=== PATIENT | female | born 1960 | race African-American/Black ===

== ENCOUNTER 2018-11-13 06:00 | Emergency (ER) | payer OTHER ==
[~2018-11-13] VITALS: Ht 172.7 cm; Wt 79.8 kg
[2018-11-13 06:33] LABS: Eosinophils # (auto) 0.1 uL; Mean Corpuscular Volume 73.2 fL (80.0-100.0); Monocytes # (auto) 0.4 uL; Monocytes % (auto) 6.4 % (0.0-12.0); Platelet Count (auto) 226 10^3/uL (140-450); White Blood Cell 6.2 10^3/uL (4.4-10.8)
[2018-11-13 06:36] LABS: Basophils # (auto) 0 uL; Basophils % (auto) 0.7 % (0.0-2.0); Eosinophils % (auto) 1.3 % (0.0-7.0); Hematocrit 35.1 % (36.0-46.0); Hemoglobin 11.3 g/dL (12.2-16.2); Lymphocytes # (auto) 3.2 uL; Lymphocytes % (auto) 51.4 % (10.0-50.0); Mean Corpuscular Hemoglobin 23.5 pg (28.0-32.0); Mean Corpuscular Hgb Conc. 32.2 g/dL (32.0-36.0); Neutrophils # (auto) 2.5 uL; Neutrophils % (auto) 40.2 % (37.0-80.0); Nucleated Red Blood Cells % 0.1 %; Red Cell Distribution Width 17.3 % (11.8-14.3)
[2018-11-13 06:51] LABS: Albumin 3.8 g/dL (3.4-5.0); Calcium 9.4 mg/dL (8.5-10.1); Potassium 3.7 mmol/L (3.5-5.1)
[2018-11-13 06:54] LABS: BUN/Creatinine Ratio 15.1; Bilirubin, Total 0.3 mg/dL (0.2-1.0); Total Protein 7.6 g/dL (6.4-8.2)
[2018-11-13] MEDS ORDERED: LORazepam 2MG/ML-1ML VIAL IV ONE (08:00)
[2018-11-13] MEDS ORDERED: NITROGLYCERIN 0.4 MG SL TAB SL ONE (08:00)
[2018-11-13 09:41] LABS: Urine Bacteria FEW /hpf (None Seen); Urine Blood Negative /uL (Negative); Urine Mucus FEW (None Seen); Urine Specific Gravity 1.011 (1.001-1.035); Urine WBC 12 /hpf (0 - 5)
[2018-11-13 10:14] VITALS: BP 111/79
[2018-11-13] MEDS ORDERED: cefTRIAXone 1GM/50ML D5W 50 ML IV ONE (11:30)
== END 2018-11-13 12:13 | disposition home or self-care (01) ==
LOC: EDBD 06:00 → ER 06:04
DX: R55 Syncope and collapse (principal); K80.20 Calculus of gallbladder without cholecystitis without obstruction; Z88.0 Allergy status to penicillin
CPT/HCPCS: 36415; 70450; 74176; 80053; 81001; 82150; 83690; 85025; 93005; 94761; 96365; 96375; 99284; J0696; J2060

== ENCOUNTER 2021-05-29 17:03 | Emergency (ER) | payer OTHER ==
[~2021-05-29] VITALS: Ht 172.7 cm; Wt 77.1 kg
[2021-05-29] MEDS ORDERED: SODIUM CHLORIDE 0.9% 1,000 ML IV ONE (19:00)
[2021-05-29] MEDS ORDERED: cefTRIAXone 1GM/50ML D5W 50 ML IV ONE (19:15)
[2021-05-29 19:48] LABS: Basophils # (auto) 0.1 10 ^3/uL (0-0.2); Eosinophils # (auto) 0.1 10 ^3/uL (0-0.8); Lymphocytes # (auto) 2.5 10 ^3/uL (0.4-5.4); Monocytes # (auto) 0.7 10 ^3/uL (0-1.3)
[2021-05-29 19:50] LABS: Basophils % (auto) 0.5 % (0.0-2.0); Eosinophils % (auto) 0.3 % (0.0-7.0); Hemoglobin 10.7 g/dL (12.2-16.2); Lymphocytes % (auto) 14.7 % (10.0-50.0); Mean Corpuscular Hemoglobin 24.6 pg (28.0-32.0); Mean Corpuscular Hgb Conc. 32.6 g/dL (32.0-36.0); Mean Corpuscular Volume 75.4 fL (80.0-100.0); Neutrophils # (auto) 13.5 10 ^3/uL (1.6-8.6); Neutrophils % (auto) 80.5 % (37.0-80.0); Red Blood Cells 4.37 10^6/uL (4.0-5.20); Red Cell Distribution Width 18.1 % (11.8-14.3); White Blood Cell 16.8 10^3/uL (4.4-10.8)
[2021-05-29 20:05] LABS: Albumin 3.3 g/dL (3.4-5.0); BUN/Creatinine Ratio 15.7; Calcium 9.8 mg/dL (8.5-10.1); Potassium 3.8 mmol/L (3.5-5.1)
[2021-05-29 20:08] LABS: Bilirubin, Total 0.3 mg/dL (0.2-1.0); Total Protein 9.2 g/dL (6.4-8.2)
[2021-05-30] MEDS ORDERED: KETOROLAC TROMETH 30 MG/ML 1ML VIAL IV ONE (00:30)
[2021-05-30 02:41] VITALS: BP 102/67
[2021-05-30] MEDS ORDERED: CLIN-203 PO (02:42)
== END 2021-05-30 03:07 | disposition home or self-care (01) ==
LOC: EDBD 17:03 → ER 17:03
DX: L03.116 Cellulitis of left lower limb (principal); J45.909 Unspecified asthma, uncomplicated; Z88.0 Allergy status to penicillin
CPT/HCPCS: 36415; 73562; 80053; 85025; 85652; 86141; 87040; 93971; 96365; 96375; 99285; J0696; J1885; J7030

== ENCOUNTER 2021-08-08 13:46 | Inpatient (IN) | payer MEDICAID, OTHER ==
[~2021-08-08] VITALS: Ht 170.2 cm; Wt 82.0 kg
[~2021-08-08 13:46] MED LIST: CLIN-203 PO
[2021-08-08] MEDS ORDERED: cefTRIAXone 1GM/50ML D5W 50 ML IV ONE (15:15)
[2021-08-08] MEDS ORDERED: CLINDAMYCIN 300MG IV 50 ML IV ONE (15:15)
[2021-08-08 15:49] LABS: Eosinophils # (auto) 0.2 10 ^3/uL (0-0.8); Hemoglobin 10.7 g/dL (12.2-16.2); Monocytes # (auto) 0.3 10 ^3/uL (0-1.3); Nucleated Red Blood Cells % 0.1 %
[2021-08-08 15:50] LABS: Basophils # (auto) 0 10 ^3/uL (0-0.2); Basophils % (auto) 0.9 % (0.0-2.0); Hematocrit 34.9 % (36.0-46.0); Lymphocytes % (auto) 37.5 % (10.0-50.0); Mean Corpuscular Hemoglobin 23.3 pg (28.0-32.0); Mean Corpuscular Hgb Conc. 30.5 g/dL (32.0-36.0); Mean Corpuscular Volume 76.3 fL (80.0-100.0); Monocytes % (auto) 5.8 % (0.0-12.0); Neutrophils # (auto) 2.8 10 ^3/uL (1.6-8.6); Neutrophils % (auto) 52.8 % (37.0-80.0); Red Blood Cells 4.57 10^6/uL (4.0-5.20); Red Cell Distribution Width 17.7 % (11.8-14.3); White Blood Cell 5.4 10^3/uL (4.4-10.8)
[2021-08-08 16:05] LABS: Albumin 3.5 g/dL (3.4-5.0); BUN/Creatinine Ratio 14.7; Calcium 9.4 mg/dL (8.5-10.1); Potassium 3.6 mmol/L (3.5-5.1)
[2021-08-08 16:08] LABS: Bilirubin, Total 0.2 mg/dL (0.2-1.0); Total Protein 8.1 g/dL (6.4-8.2)
[2021-08-08] MEDS ORDERED: TEMAZEPAM 15 MG CAP PO PRN (22:30)
[2021-08-08] MEDS ORDERED: ONDANSETRON HCL 4 MG/2 ML VIAL IV PRN (22:30)
[2021-08-08] MEDS ORDERED: ACETAMINOPHEN 325 MG TAB PO PRN (22:30)
[2021-08-09] MEDS: HYDROcodone-ACET 5/325MG TAB PO PRN ×5 (00:21→22:40)
[2021-08-09 03:14] VITALS: BP 127/88
[2021-08-09 05:00] VITALS: BP 127/88
[2021-08-09 07:31] LABS: Basophils # (auto) 0.1 10 ^3/uL (0-0.2); Eosinophils # (auto) 0.2 10 ^3/uL (0-0.8); Hemoglobin 9.6 g/dL (12.2-16.2); Monocytes # (auto) 0.4 10 ^3/uL (0-1.3); White Blood Cell 6.6 10^3/uL (4.4-10.8)
[2021-08-09 07:33] LABS: Basophils % (auto) 1.1 % (0.0-2.0); Eosinophils % (auto) 3.1 % (0.0-7.0); Lymphocytes # (auto) 2.6 10 ^3/uL (0.4-5.4); Lymphocytes % (auto) 39.4 % (10.0-50.0); Mean Corpuscular Hemoglobin 23.6 pg (28.0-32.0); Mean Corpuscular Hgb Conc. 30.9 g/dL (32.0-36.0); Mean Corpuscular Volume 76.4 fL (80.0-100.0); Monocytes % (auto) 6.4 % (0.0-12.0); Neutrophils # (auto) 3.3 10 ^3/uL (1.6-8.6); Nucleated Red Blood Cells % 0.2 %; Red Blood Cells 4.06 10^6/uL (4.0-5.20); Red Cell Distribution Width 17.8 % (11.8-14.3)
[2021-08-09 08:03] LABS: BUN/Creatinine Ratio 16.7
[2021-08-09 09:00] VITALS: BP 111/75
[2021-08-09] MEDS: cefTRIAXone 1GM/50ML D5W 50 ML IV SCH (09:11)
[2021-08-09] MEDS: PANTOPRAZOLE 40 MG TAB PO SCH (09:11)
[2021-08-09] MEDS: ENOXAPARIN SOD 40 MG/0.4 ML SYRINGE SC SCH (09:12)
[2021-08-09 13:00] VITALS: BP 133/89
[2021-08-09] MEDS: CLINDAMYCIN 600MG IV 50 ML IV SCH ×3 (13:11→22:00)
[2021-08-09 17:00] VITALS: BP 98/69
[2021-08-09 22:00] VITALS: BP 131/82
[2021-08-10] MEDS: HYDROcodone-ACET 5/325MG TAB PO PRN ×2 (04:02→10:38)
[2021-08-10] MEDS: CLINDAMYCIN 600MG IV 50 ML IV SCH (06:00)
[2021-08-10 09:00] VITALS: BP 113/69
[2021-08-10] MEDS: cefTRIAXone 1GM/50ML D5W 50 ML IV SCH (09:00)
[2021-08-10] MEDS ORDERED: LEVO500T31 PO (10:06)
[2021-08-10] MEDS ORDERED: CLIN-203 PO (10:06)
[2021-08-10] MEDS ORDERED: HYDR-4902 PO (10:06)
[2021-08-10] MEDS: ENOXAPARIN SOD 40 MG/0.4 ML SYRINGE SC SCH (10:37)
[2021-08-10] MEDS: PANTOPRAZOLE 40 MG TAB PO SCH (10:37)
[2021-08-10 12:55] VITALS: BP 107/81
[2021-08-10 13:00] VITALS: BP 107/81
== END 2021-08-10 14:05 | disposition home or self-care (01) | DRG 383 ==
LOC: ER 13:46 → OVERFLOW 22:16 → EAST 08-09 03:07
PROVIDERS: ADMIT Nurse Practitioner; ATTEND Family Medicine
DX: L03.116 Cellulitis of left lower limb (principal); F32.A Depression, unspecified; Z20.822 Contact with and (suspected) exposure to COVID-19; J45.909 Unspecified asthma, uncomplicated; F41.9 Anxiety disorder, unspecified; Z88.0 Allergy status to penicillin
CPT/HCPCS: 36415; 73700; 80048; 80053; 84484; 85025; 85379; 87077; 87205; 93926; 93971; 96365; 96367; G0378; J0696; J3490